=== PATIENT | male | born 1940 | race Two or more races ===

== ENCOUNTER 2024-10-19 11:23 | Emergency (ER) | payer OTHER ==
[~2024-10-19] VITALS: Ht 172.7 cm; Wt 77.1 kg
[~2024-10-19 11:23] MED LIST: DOLOGEN CAPLET1 EACH PO
[2024-10-19] MEDS ORDERED: FINASTERIDE1 MG (12:10)
[2024-10-19] MEDS ORDERED: ROSUVASTATIN CA20 MG (12:10)
[2024-10-19] MEDS ORDERED: CHILDREN'S ASPI81 MG (12:11)
[2024-10-19] MEDS ORDERED: AMLODIPINE-OLM1 EAC2 (12:11)
[2024-10-19] MEDS ORDERED: KAPSPARGO SPRIN25 MG (12:11)
[2024-10-19] MEDS ORDERED: ACID REDUCER20 M1 (12:11)
[2024-10-19] MEDS ORDERED: VALSARTAN80 MG (12:11)
[2024-10-19] MEDS ORDERED: BUTALB/ACETAMINOPHEN/CAFFEINE 1 TAB TABLET PO ONE (14:51)
[2024-10-19] MEDS ORDERED: BUTALB/ACETAMINOPHEN/CAFFEINE 1 TAB TABLET PO STA (14:54)
== END 2024-10-19 15:01 | disposition home or self-care (01) ==
LOC: ER 11:25
DX: N50.819 Testicular pain, unspecified (principal); I10 Essential (primary) hypertension

== ENCOUNTER 2025-07-24 21:15 | Emergency (ER) | payer OTHER ==
[~2025-07-24] VITALS: Ht 172.7 cm; Wt 79.4 kg
[~2025-07-24 21:15] MED LIST changes: +ACID REDUCER20 M1; +AMLODIPINE-OLM1 EAC2; +CHILDREN'S ASPI81 MG; +FINASTERIDE1 MG; +KAPSPARGO SPRIN25 MG; +ROSUVASTATIN CA20 MG; +VALSARTAN80 MG
[2025-07-24 21:33] VITALS: O2SAT 99
[2025-07-24] MEDS ORDERED: FAMOTIDINE/PF 20 MG/2 ML VIAL ONE ×2 (23:15→23:16)
[2025-07-24] MEDS ORDERED: FAMOtidine 10 MG/ML (4ML VIAL) IV ONE (23:15)
[2025-07-24 23:59] LABS: BASO % 0.2 % (0.1-1.2); EOS # 0.14 (0.04-0.54); EOS % 2.6 % (0.7-7.0); LYMPH # 1.54 (1.18-3.74); LYMPH % 28.5 % (19.3-53.1); MEAN PLATELET VOLUME 10.40 fl (9.4-12.4); MONO # 0.46 (0.24-0.82); MONO % 8.5 % (4.7-12.5); NEUT # 3.24 (1.56-6.13); NEUT % 60.0 % (34.0-71.1); RED CELL DISTRIBUTION WIDTH 12.7 % (11.6-14.4)
[2025-07-25 00:23] LABS: ALT/SGPT 39.0 U/L (12-78); AST/SGOT 16.0 U/L (15-37); BILIRUBIN TOTAL 0.58 mg/dL (0.3-1.2); BUN CREA RATIO 17.0 (7.0-25.0); CREATININE SERUM 1.17 mg/dL (0.70-1.30); GFR 59.54; GLOBULINA 3.1 G/DL (2.4-3.5); GLUCOSE FASTING 92.0 mg/dL (65-100); OSMOLALITY SERUM 287.0 MOSM/KG (275-295)
[2025-07-25] MEDS ORDERED: FAMOTIDINE40 MG PO (04:17)
[2025-07-25] MEDS ORDERED: CARAFATE1 GM PO (04:17)
[2025-07-25 04:23] VITALS: BP 130/60
== END 2025-07-25 04:24 ==
LOC: ER 21:15
PROVIDERS: Preventive Medicine Public Health & General Preventive Medicine
DX: K21.9 Gastro-esophageal reflux disease without esophagitis (principal); I10 Essential (primary) hypertension
CPT/HCPCS: 36415; 93005; 99282; J3490